=== PATIENT | female | born 1970 | race Caucasian/White ===

== ENCOUNTER 2024-05-30 15:22 | Emergency (ER) | payer BC ==
[2024-05-30] MEDS: Ondansetron 4 MG Tab.DIS PO ONE (16:12)
[2024-05-30] MEDS: Acetaminophen 500 MG Tab PO ONE (16:19)
[2024-05-30 16:42] LABS: BASOPHILS PERCENT AUTO 0.3 % (0.0-1.0); HEMATOCRIT 41.8 % (37.0-47.0); LYMPHOCYTES PERCENT AUTO 8.1 % (20.5-50.1); MEAN CORPUSCULAR HGB CONC 33.5 g/dL (33.0-35.0); MEAN CORPUSCULAR VOLUME 80.5 fL (80-100); MONOCYTES PERCENT AUTO 1.8 % (2-8); NEUTROPHILS PERCENT AUTO 88.8 % (42.2-75.2); PLATELET COUNT,PLT 166 10^3/uL (150-450); RED BLOOD CELL COUNT 5.19 10^6/uL (4.2-5.4); WHITE BLOOD CELL COUNT,WBC 6.2 10^3/uL (5.0-10.0)
[2024-05-30 17:06] LABS: A/G RATIO 1.1; ALANINE AMINOTRANSFERASE,ALT 24 U/L (14-59); ALBUMIN 3.6 g/dL (3.4-5.0); ALKALINE PHOSPHATASE 96 U/L (46-116); ANION GAP 13.6 mEq/L (7-13); ASPARTATE AMNIOTRANSFERASE,AST 20 U/L (15-37); BILIRUBIN TOTAL 0.6 mg/dL (0.2-1.0); BLOOD UREA NITROGEN,BUN 14 mg/dL (7-18); BUN/CREATININE RATIO 15.9 (No establ ref range); CALCIUM 8.8 mg/dL (8.5-10.1); CARBON DIOXIDE,CO2 27 mmol/L (21-32); CHLORIDE,CL 103 mmol/L (98-107); CREATININE 0.88 mg/dL (0.55-1.02); EST CRCL DRUG DOSING (CG) 53.87 mL/min; ESTIMATED GFR 77 mL/min (>=60); GLUCOSE RANDOM 111 mg/dL (70-99); POTASSIUM,K 3.6 mmol/L (3.5-5.1); PROTEIN TOTAL,TP 6.9 g/dL (6.4-8.2); SODIUM,NA 140 mmol/L (136-145)
[2024-05-30 17:08] LABS: LACTIC ACID 2.1 mmol/L (0.4-2.0)
[2024-05-30] MEDS ORDERED: Sodium Chloride 0.9% 10 ML Syringe FLUSH PRN (17:11)
[2024-05-30 17:15] LABS: BILIRUBIN,URINE NEGATIVE (NEGATIVE); COLOR,URINE YELLOW (YELLOW); GLUCOSE,URINE 100 (NEGATIVE); KETONES,URINE NEGATIVE (NEGATIVE); LEUKOCYTE ESTERASE,URINE MODERATE (NEGATIVE); NITRITE,URINE NEGATIVE (NEGATIVE); OCCULT BLOOD,URINE MODERATE (NEGATIVE); PH,URINE 5.5 (5.0-9.0); PROTEIN,URINE NEGATIVE (NEGATIVE); UROBILINOGEN,URINE 0.2 mg/dL (0.2-1.0)
[2024-05-30 17:16] LABS: APPEARANCE,URINE SLIGHTLY CLOUDY (CLEAR)
[2024-05-30 17:25] LABS: AMORPHOUS SEDIMENT,URINE FEW /HPF (NOT SEEN); BACTERIA,URINE FEW /HPF (0-FEW/HPF); EPITHELIAL CELLS,URINE MODERATE /HPF (NOT SEEN); MUCUS,URINE MODERATE /LPF (NOT SEEN); RBC,URINE 0-5 /HPF (0-5); WBC,URINE 75-100 /HPF (0-5/HPF)
[2024-05-30] MEDS: Sodium Chloride 0.9% 1,000 ML IV ONE (17:42)
[2024-05-30] MEDS: Cephalexin 500 MG Cap PO ONE (17:44)
[2024-05-30 18:42] VITALS: BP 108/68; PULSE 104
== END 2024-05-30 18:20 | disposition home or self-care (01) ==
LOC: DL.ED 15:22
DX: N39.0 Urinary tract infection, site not specified (principal); R11.2 Nausea with vomiting, unspecified; Z90.710 Acquired absence of both cervix and uterus; Z88.1 Allergy status to other antibiotic agents; Z88.2 Allergy status to sulfonamides
CPT/HCPCS: 36415; 71045; 80053; 81001; 83605; 84145; 84484; 85025; 87040; 87081; 87086; 87088; 87186; 87428; 87430; 93005; 93010; 96360; 99284; A9270; J7030

== ENCOUNTER 2024-07-24 08:39 | Inpatient (IN) | payer BC, MEDICAID ==
[2024-07-24 09:30] LABS: BASOPHILS PERCENT AUTO 0.6 % (0.0-1.0); EOSINOPHILS PERCENT AUTO 1.4 % (1.0-3.0); HEMATOCRIT 37.6 % (37.0-47.0); HEMOGLOBIN 12.6 g/dL (12.0-16.0); MEAN CORPUSCULAR HEMOGLOBIN 26.4 pg (27.0-34.0); MEAN CORPUSCULAR HGB CONC 33.5 g/dL (33.0-35.0); MEAN CORPUSCULAR VOLUME 78.8 fL (80-100); MONOCYTES PERCENT AUTO 10.2 % (2-8); NEUTROPHILS PERCENT AUTO 73.8 % (42.2-75.2); PLATELET COUNT,PLT 320 10^3/uL (150-450); RED BLOOD CELL COUNT 4.77 10^6/uL (4.2-5.4); WHITE BLOOD CELL COUNT,WBC 6.9 10^3/uL (5.0-10.0)
[2024-07-24 09:59] LABS: PTT,PARTIAL THROMBOPLSTIN TIME 57.4 SEC (22.0-34.0)
[2024-07-24 10:00] LABS: LACTIC ACID 0.7 mmol/L (0.4-2.0)
[2024-07-24 10:09] LABS: ALBUMIN 2.8 g/dL (3.4-5.0); ANION GAP 17.4 mEq/L (7-13); BILIRUBIN TOTAL 0.8 mg/dL (0.2-1.0); BUN/CREATININE RATIO 18.3 (No establ ref range); CALCIUM 8.7 mg/dL (8.5-10.1); CREATININE 0.71 mg/dL (0.55-1.02); EST CRCL DRUG DOSING (CG) 66.76 mL/min; MAGNESIUM 1.9 mg/dL (1.8-2.4); POTASSIUM,K 3.4 mmol/L (3.5-5.1); PROTEIN TOTAL,TP 7.1 g/dL (6.4-8.2)
[2024-07-24 10:09] LABS: APPEARANCE,URINE CLEAR (CLEAR); BILIRUBIN,URINE SMALL (NEGATIVE); COLOR,URINE DARK YELLOW (YELLOW); GLUCOSE,URINE NEGATIVE (NEGATIVE); KETONES,URINE >=160 (NEGATIVE); LEUKOCYTE ESTERASE,URINE TRACE (NEGATIVE); NITRITE,URINE NEGATIVE (NEGATIVE); OCCULT BLOOD,URINE MODERATE (NEGATIVE); PROTEIN,URINE 30 (NEGATIVE)
[2024-07-24 10:10] LABS: A/G RATIO 0.65
[2024-07-24] MEDS: Sodium Chloride 0.9% 1,000 ML IV ONE (10:16)
[2024-07-24 10:54] LABS: PROTHROMBIN TIME 72.4 SEC (9.0-12.0)
[2024-07-24] MEDS: Potassium Chloride 10 MEQ Tab.ER PO ONE (11:03)
[2024-07-24 11:15] LABS: BACTERIA,URINE FEW /HPF (0-FEW/HPF); EPITHELIAL CELLS,URINE FEW /HPF (NOT SEEN); MUCUS,URINE MODERATE /LPF (NOT SEEN)
[2024-07-24 11:16] LABS: HYALINE CASTS,URINE MODERATE
[2024-07-24] MEDS: Ondansetron 4 MG Tab.DIS PO ONE (13:13)
[2024-07-24 13:51] LABS: INR 9.4 (0.9-1.2)
[2024-07-24] MEDS ORDERED: Acetaminophen 325 MG Tab PO PRN (14:16)
[2024-07-24] MEDS ORDERED: HYDROmorphone 0.5 MG/0.5 ML Syringe IVPUSH PRN (14:16)
[2024-07-24] MEDS ORDERED: Metoclopramide 10 MG/2 ML SDV IV PRN (14:16)
[2024-07-24] MEDS ORDERED: Metoprolol Tartrate 5 MG/5 ML SDV IVPUSH PRN (14:16)
[2024-07-24] MEDS ORDERED: Polyethylene Glycol 3350 Powder 17 GM Packet PO PRN (14:16)
[2024-07-24] MEDS ORDERED: Naloxone 2 MG/2 ML Syringe IVPUSH PRN (14:16)
[2024-07-24] MEDS ORDERED: Albuterol/Ipratropium 3.0-0.5 MG/3 ML Neb Soln NEB PRN (14:16)
[2024-07-24] MEDS ORDERED: Zolpidem 5 MG Tab PO PRN (14:16)
[2024-07-24] MEDS ORDERED: Acetaminophen/oxyCODONE 325-5 MG Tab PO PRN (14:16)
[2024-07-24] MEDS ORDERED: hydrALAZINE 20 MG/ML SDV IVPUSH PRN (14:16)
[2024-07-24] MEDS ORDERED: Ondansetron 4 MG/2 ML SDV IVPUSH PRN (14:16)
[2024-07-24] MEDS: Phytonadione 5 MG Tab PO ONE (14:28)
[2024-07-24 14:33] LABS: HEMOGLOBIN A1C 5.4 % (<5.7)
[2024-07-24 14:35] LABS: T4 FREE 1.28 ng/dL (0.76-1.46); TSH ULTRASENSITIVE 1.6 uIU/mL (0.36-3.74)
[2024-07-24] MEDS ORDERED: Famotidine 20 MG Tab PO PRN (15:45)
[2024-07-24] MEDS ORDERED: Hydrocortisone 1% Crm 30 GM Tube TOP PRN (15:45)
[2024-07-24] MEDS ORDERED: Fluticasone NASAL Spray 16 GM Bottle NAS PRN (15:45)
[2024-07-24] MEDS: Sodium Chloride 0.9% 1,000 ML IV SCH (16:20)
[2024-07-24] MEDS: Phytonadione 1 MG/0.5 ML Syringe IM ONE (16:28)
[2024-07-24] MEDS: Acetaminophen/Butalbital/Caffeine 325-50-40 MG Tab PO PRN (20:08)
[2024-07-25 06:34] LABS: BASOPHILS PERCENT AUTO 0.4 % (0.0-1.0); EOSINOPHILS PERCENT AUTO 3.3 % (1.0-3.0); HEMATOCRIT 33.4 % (37.0-47.0); HEMOGLOBIN 10.8 g/dL (12.0-16.0); LYMPHOCYTES PERCENT AUTO 16.3 % (20.5-50.1); MEAN CORPUSCULAR HGB CONC 32.3 g/dL (33.0-35.0); MEAN CORPUSCULAR VOLUME 80.5 fL (80-100); MONOCYTES PERCENT AUTO 10.2 % (2-8); NEUTROPHILS PERCENT AUTO 69.8 % (42.2-75.2); PLATELET COUNT,PLT 302 10^3/uL (150-450); RED BLOOD CELL COUNT 4.15 10^6/uL (4.2-5.4); WHITE BLOOD CELL COUNT,WBC 5.2 10^3/uL (5.0-10.0)
[2024-07-25 06:52] LABS: INR 1.6 (0.9-1.2); PROTHROMBIN TIME 16.5 SEC (9.0-12.0)
[2024-07-25 07:17] LABS: ALBUMIN 2.3 g/dL (3.4-5.0); ANION GAP 17.5 mEq/L (7-13); BILIRUBIN TOTAL 0.7 mg/dL (0.2-1.0); BUN/CREATININE RATIO 16.7 (No establ ref range); C-REACTIVE PROTEIN 7.91 ng/dL (<=0.50); CALCIUM 8.2 mg/dL (8.5-10.1); CREATININE 0.6 mg/dL (0.55-1.02); MAGNESIUM 1.7 mg/dL (1.8-2.4); POTASSIUM,K 3.5 mmol/L (3.5-5.1); PROTEIN TOTAL,TP 6.2 g/dL (6.4-8.2)
[2024-07-25 07:22] LABS: A/G RATIO 0.59
[2024-07-25] MEDS ORDERED: Clopidogrel 75 MG Tab PO SCH (09:00)
[2024-07-25] MEDS ORDERED: Aspirin 81 MG Tab.Chew PO SCH (09:00)
[2024-07-25] MEDS ORDERED: Sertraline 50 MG Tab PO SCH (09:00)
[2024-07-25] MEDS: Magnesium Sulfate/Water Premix 2 GM in Premix Bag 1 BAG IV ONE (09:10)
[2024-07-25] MEDS: Saccharomyces Boulardii (Probiotic) 250 MG Cap PO SCH (09:10)
[2024-07-25] MEDS: atorvaSTATin 20 MG Tab PO SCH (09:10)
[2024-07-25] MEDS: cefTRIAXone 1 GM Vial IVPUSH SCH (09:11)
[2024-07-25] MEDS: Sertraline 50 MG Tab PO SCH (09:11)
[2024-07-25] MEDS: Famotidine 20 MG Tab PO SCH (09:11)
[2024-07-25] MEDS: Sennosides/Docusate Sodium 50-8.6 MG Tab PO PRN (09:30)
[2024-07-25] MEDS: Acetaminophen 500 MG Tab PO SCH (12:36)
[2024-07-25] MEDS: Dexamethasone 6 MG TABLET PO ONE (12:37)
[2024-07-25] MEDS: Warfarin 2 MG Tab PO SCH (13:58)
[2024-07-25] MEDS: traMADol 50 MG Tab PO PRN (18:26)
[2024-07-25] MEDS ORDERED: Mirtazapine 15 MG Tab PO SCH (21:00)
[2024-07-25] MEDS: Mirtazapine 15 MG Tab PO SCH (21:21)
[2024-07-25] MEDS: Sodium Chloride 0.9% 10 ML Syringe FLUSH PRN (21:24)
[2024-07-25] MEDS: Meclizine 12.5 MG Tab PO PRN (22:31)
[2024-07-26 06:27] LABS: BASOPHILS PERCENT AUTO 0.2 % (0.0-1.0); HEMATOCRIT 34.2 % (37.0-47.0); HEMOGLOBIN 11.4 g/dL (12.0-16.0); LYMPHOCYTES PERCENT AUTO 18.4 % (20.5-50.1); MEAN CORPUSCULAR HEMOGLOBIN 26.3 pg (27.0-34.0); MEAN CORPUSCULAR HGB CONC 33.3 g/dL (33.0-35.0); NEUTROPHILS PERCENT AUTO 72.4 % (42.2-75.2); PLATELET COUNT,PLT 355 10^3/uL (150-450); RED BLOOD CELL COUNT 4.33 10^6/uL (4.2-5.4); WHITE BLOOD CELL COUNT,WBC 4.5 10^3/uL (5.0-10.0)
[2024-07-26 06:42] LABS: INR 2.6 (0.9-1.2); PROTHROMBIN TIME 25.6 SEC (9.0-12.0)
[2024-07-26 06:51] LABS: A/G RATIO 0.55; ALBUMIN 2.3 g/dL (3.4-5.0); ANION GAP 12.9 mEq/L (7-13); BILIRUBIN TOTAL 0.3 mg/dL (0.2-1.0); BUN/CREATININE RATIO 23.5 (No establ ref range); C-REACTIVE PROTEIN 8.73 ng/dL (<=0.50); CALCIUM 8.6 mg/dL (8.5-10.1); CREATININE 0.51 mg/dL (0.55-1.02); EST CRCL DRUG DOSING (CG) 92.94 mL/min; MAGNESIUM 2.2 mg/dL (1.8-2.4); POTASSIUM,K 3.9 mmol/L (3.5-5.1); PROTEIN TOTAL,TP 6.5 g/dL (6.4-8.2)
[2024-07-26] MEDS: Dexamethasone 4 MG Tab PO SCH (09:29)
[2024-07-26] MEDS: Sertraline 50 MG Tab PO SCH (09:29)
[2024-07-26] MEDS: Magnesium Hydroxide 400 MG/5 ML Susp 30 ML Cup PO PRN (09:34)
[2024-07-26] MEDS: Pramipexole 0.125 MG Tab PO ONE ×2 (11:23→11:29)
[2024-07-26] MEDS: Levofloxacin/Dextrose 5%-Water 250 MG in Premix Bag 1 BAG IV ONE ×3 (13:28→14:24)
[2024-07-26] MEDS: Warfarin** 1 MG TABLET PO ONE (13:39)
[2024-07-26] MEDS: Pramipexole 0.125 MG Tab PO SCH (20:38)
[2024-07-27 06:33] LABS: BASOPHILS PERCENT AUTO 0.3 % (0.0-1.0); EOSINOPHILS PERCENT AUTO 0.8 % (1.0-3.0); HEMATOCRIT 33.2 % (37.0-47.0); HEMOGLOBIN 10.8 g/dL (12.0-16.0); LYMPHOCYTES PERCENT AUTO 22.7 % (20.5-50.1); MEAN CORPUSCULAR HEMOGLOBIN 25.8 pg (27.0-34.0); MEAN CORPUSCULAR HGB CONC 32.5 g/dL (33.0-35.0); MEAN CORPUSCULAR VOLUME 79.4 fL (80-100); MONOCYTES PERCENT AUTO 9.2 % (2-8); PLATELET COUNT,PLT 344 10^3/uL (150-450); RED BLOOD CELL COUNT 4.18 10^6/uL (4.2-5.4); WHITE BLOOD CELL COUNT,WBC 6.4 10^3/uL (5.0-10.0)
[2024-07-27 06:47] LABS: INR 4.4 (0.9-1.2); PROTHROMBIN TIME 41.5 SEC (9.0-12.0)
[2024-07-27 07:00] LABS: ALBUMIN 2.4 g/dL (3.4-5.0); ANION GAP 11.4 mEq/L (7-13); BILIRUBIN TOTAL 0.2 mg/dL (0.2-1.0); C-REACTIVE PROTEIN 4.09 ng/dL (<=0.50); CALCIUM 8.3 mg/dL (8.5-10.1); CREATININE 0.63 mg/dL (0.55-1.02); EST CRCL DRUG DOSING (CG) 75.24 mL/min; POTASSIUM,K 3.4 mmol/L (3.5-5.1); PROTEIN TOTAL,TP 6.3 g/dL (6.4-8.2)
[2024-07-27 07:01] LABS: A/G RATIO 0.62
[2024-07-27] MEDS: Aspirin 81 MG Tab.Chew PO SCH (09:49)
[2024-07-27] MEDS: Clopidogrel 75 MG Tab PO SCH (09:49)
[2024-07-27] MEDS: Levofloxacin/Dextrose 5%-Water 250 MG in Premix Bag 1 BAG IV SCH (10:06)
[2024-07-27] MEDS: guaiFENesin 600 MG Tab.ER PO ONE (10:11)
[2024-07-27] MEDS: Iopamidol 755 Mg/ML 100 ML Bottle IV ONE (11:49)
[2024-07-27] MEDS: Potassium Chloride 10 MEQ Tab.ER PO ONE (12:28)
[2024-07-27] MEDS: guaiFENesin 600 MG Tab.ER PO SCH (20:43)
[2024-07-28] MEDS: Sodium Chloride 0.9% 1,000 ML IV SCH (06:24)
[2024-07-28 06:32] LABS: BASOPHILS PERCENT AUTO 0.4 % (0.0-1.0); EOSINOPHILS PERCENT AUTO 1.2 % (1.0-3.0); HEMATOCRIT 33.8 % (37.0-47.0); LYMPHOCYTES PERCENT AUTO 26.2 % (20.5-50.1); MEAN CORPUSCULAR HEMOGLOBIN 26.2 pg (27.0-34.0); MEAN CORPUSCULAR HGB CONC 32.5 g/dL (33.0-35.0); MEAN CORPUSCULAR VOLUME 80.5 fL (80-100); MONOCYTES PERCENT AUTO 9.5 % (2-8); NEUTROPHILS PERCENT AUTO 62.7 % (42.2-75.2); PLATELET COUNT,PLT 341 10^3/uL (150-450)
[2024-07-28 06:49] LABS: INR 3.1 (0.9-1.2); PROTHROMBIN TIME 30.2 SEC (9.0-12.0)
[2024-07-28 06:53] LABS: ALBUMIN 2.5 g/dL (3.4-5.0); ANION GAP 11.7 mEq/L (7-13); BILIRUBIN TOTAL 0.2 mg/dL (0.2-1.0); BUN/CREATININE RATIO 22.8 (No establ ref range); C-REACTIVE PROTEIN 3.04 ng/dL (<=0.50); CALCIUM 8.5 mg/dL (8.5-10.1); CREATININE 0.57 mg/dL (0.55-1.02); EST CRCL DRUG DOSING (CG) 83.16 mL/min; MAGNESIUM 1.8 mg/dL (1.8-2.4); POTASSIUM,K 3.7 mmol/L (3.5-5.1); PROTEIN TOTAL,TP 6.4 g/dL (6.4-8.2)
[2024-07-28 06:57] LABS: A/G RATIO 0.64
[2024-07-28] MEDS: Levofloxacin/Dextrose 5%-Water 250 MG in Premix Bag 1 BAG IV SCH (11:33)
[2024-07-28 11:59] VITALS: BP 100/66; PULSE 71
[2024-07-28] MEDS ORDERED: Warfarin** 1 MG TABLET PO ONE (14:00)
== END 2024-07-28 14:20 | disposition home or self-care (01) | DRG 690 ==
LOC: DL.ED 08:39 → DL.MS 14:05
PROVIDERS: ADMIT Internal Medicine; ATTEND Internal Medicine
DX: N39.0 Urinary tract infection, site not specified (principal); D68.9 Coagulation defect, unspecified; R47.01 Aphasia; E46 Unspecified protein-calorie malnutrition; R42 Dizziness and giddiness; J30.9 Allergic rhinitis, unspecified; F15.90 Other stimulant use, unspecified, uncomplicated; R73.9 Hyperglycemia, unspecified; I10 Essential (primary) hypertension; E78.00 Pure hypercholesterolemia, unspecified; H54.7 Unspecified visual loss; E88.09 Other disorders of plasma-protein metabolism, not elsewhere classified; R82.4 Acetonuria; R31.9 Hematuria, unspecified; E86.0 Dehydration; R63.0 Anorexia; B95.1 Streptococcus, group B, as the cause of diseases classified elsewhere; F32.A Depression, unspecified; E87.6 Hypokalemia; G25.81 Restless legs syndrome; E83.42 Hypomagnesemia; Z86.73 Personal history of transient ischemic attack (TIA), and cerebral infarction without residual deficits; Z88.2 Allergy status to sulfonamides; Z68.26 Body mass index [BMI] 26.0-26.9, adult; Z88.8 Allergy status to other drugs, medicaments and biological substances; Z79.1 Long term (current) use of non-steroidal anti-inflammatories (NSAID); Z79.82 Long term (current) use of aspirin; Z79.01 Long term (current) use of anticoagulants; Z79.899 Other long term (current) drug therapy; Z79.02 Long term (current) use of antithrombotics/antiplatelets; Z90.710 Acquired absence of both cervix and uterus; Z98.51 Tubal ligation status; Z98.890 Other specified postprocedural states
CPT/HCPCS: 36415; 70450; 70551; 80053; 80061; 81001; 83036; 83605; 83735; 84439; 84443; 84484; 85025; 85610; 85730; 86140; 87086; 87088; 87186; 87428-QW; 93005; 93010; 93306; 93880; 96361; 96365; 99223; 99232; 99238; 99284; 99285-25; A9270-GY; J0696; J1956; J3430; J3475; J3490; J7030; J8540

== ENCOUNTER 2024-09-10 21:40 | Emergency (ER) | payer MEDICAID ==
[2024-09-10 23:21] LABS: BASOPHILS PERCENT AUTO 0.7 % (0.0-1.0); EOSINOPHILS PERCENT AUTO 5.2 % (1.0-3.0); HEMOGLOBIN 12.1 g/dL (12.0-16.0); LYMPHOCYTES PERCENT AUTO 37.3 % (20.5-50.1); MEAN CORPUSCULAR HEMOGLOBIN 26.6 pg (27.0-34.0); MEAN CORPUSCULAR HGB CONC 32.7 g/dL (33.0-35.0); MEAN CORPUSCULAR VOLUME 81.3 fL (80-100); MONOCYTES PERCENT AUTO 11.2 % (2-8); NEUTROPHILS PERCENT AUTO 45.6 % (42.2-75.2); PLATELET COUNT,PLT 266 10^3/uL (150-450); RED BLOOD CELL COUNT 4.55 10^6/uL (4.2-5.4); WHITE BLOOD CELL COUNT,WBC 4.2 10^3/uL (5.0-10.0)
[2024-09-10 23:23] LABS: ALBUMIN 3.1 g/dL (3.4-5.0); BILIRUBIN TOTAL 0.6 mg/dL (0.2-1.0); BUN/CREATININE RATIO 16.2 (No establ ref range); CALCIUM 8.8 mg/dL (8.5-10.1); CREATININE 0.8 mg/dL (0.55-1.02); EST CRCL DRUG DOSING (CG) 59.25 mL/min; POTASSIUM,K 3.4 mmol/L (3.5-5.1); PROTEIN TOTAL,TP 6.9 g/dL (6.4-8.2)
[2024-09-10 23:27] LABS: ANION GAP 11.4 mEq/L (7-13)
[2024-09-10 23:39] LABS: A/G RATIO 0.82
[2024-09-11] MEDS: Morphine 2 MG/ML SYRINGE IVPUSH ONE (00:14)
[2024-09-11] MEDS: Iopamidol 612 MG/ML 100 ML Bottle IVPUSH ONE (00:20)
[2024-09-11] MEDS: Lactated Ringers 1,000 ML IV ONE (01:58)
[2024-09-11] MEDS: cefTRIAXone 2 GM Vial IVPUSH ONE (02:00)
[2024-09-11] MEDS: metroNIDAZOLE/Normal Saline 500 MG in Premix Bag 1 BAG IV ONE (02:00)
[2024-09-11 07:53] VITALS: BP 111/74; PULSE 73
== END 2024-09-11 09:26 ==
LOC: DL.ED 21:40
DX: K81.9 Cholecystitis, unspecified (principal); E78.00 Pure hypercholesterolemia, unspecified; I10 Essential (primary) hypertension; Z88.2 Allergy status to sulfonamides; Z88.1 Allergy status to other antibiotic agents; Z79.82 Long term (current) use of aspirin; Z79.01 Long term (current) use of anticoagulants; Z79.899 Other long term (current) drug therapy; Z90.710 Acquired absence of both cervix and uterus
CPT/HCPCS: 36415; 74177; 80053; 83690; 85025; 96365; 96375; 99284; 99285; J0696; J1836; J2270; J7120; Q9967

== ENCOUNTER 2024-11-19 07:30 | Emergency (ER) | payer BC, MEDICAID ==
[2024-11-19 07:30] VITALS: BP 114/72; PULSE 93
[2024-11-19] MEDS: Ondansetron 4 MG Tab.DIS PO ONE (07:40)
[2024-11-19 07:50] LABS: BASOPHILS PERCENT AUTO 0.7 % (0.0-1.0); EOSINOPHILS PERCENT AUTO 1.4 % (1.0-3.0); HEMATOCRIT 37.3 % (37.0-47.0); HEMOGLOBIN 11.9 g/dL (12.0-16.0); LYMPHOCYTES PERCENT AUTO 23.1 % (20.5-50.1); MEAN CORPUSCULAR HGB CONC 31.9 g/dL (33.0-35.0); MEAN CORPUSCULAR VOLUME 81.6 fL (80-100); MONOCYTES PERCENT AUTO 8.6 % (2-8); NEUTROPHILS PERCENT AUTO 66.2 % (42.2-75.2); PLATELET COUNT,PLT 196 10^3/uL (150-450); RED BLOOD CELL COUNT 4.57 10^6/uL (4.2-5.4); WHITE BLOOD CELL COUNT,WBC 5.7 10^3/uL (5.0-10.0)
[2024-11-19 08:05] LABS: ANION GAP 7.4 mEq/L (7-13); CALCIUM 8.6 mg/dL (8.5-10.1); CREATININE 0.85 mg/dL (0.55-1.02); EST CRCL DRUG DOSING (CG) 63.82 mL/min; POTASSIUM,K 3.4 mmol/L (3.5-5.1)
[2024-11-19 08:14] LABS: INR 1.6 (0.9-1.2); PROTHROMBIN TIME 16.1 SEC (9.0-12.0)
[2024-11-19] MEDS: Acetaminophen 500 MG Tab PO ONE (08:51)
[2024-11-19] MEDS: Ibuprofen 600 MG Tab PO ONE (08:52)
== END 2024-11-19 08:55 | disposition home or self-care (01) ==
LOC: DL.ED 07:30
DX: R04.0 Epistaxis (principal); I10 Essential (primary) hypertension; E78.00 Pure hypercholesterolemia, unspecified; Z88.2 Allergy status to sulfonamides; Z88.8 Allergy status to other drugs, medicaments and biological substances; Z79.82 Long term (current) use of aspirin; Z79.899 Other long term (current) drug therapy; Z90.710 Acquired absence of both cervix and uterus
CPT/HCPCS: 36415; 70450; 80048; 85025; 85610; 99284; A9270